=== PATIENT | female | born 1970 | race Caucasian/White ===

== ENCOUNTER 2022-09-05 08:47 | Day surgery (SDC) | payer OTHER ==
[~2022-09-05] VITALS: Ht 160 cm; Wt 77.6 kg
[~2022-09-05 08:47] MED LIST: BENTYL10 MG PO; Hair, Skin & N1 EACH PO; SAM-E200 MG PO; ST. JOHN'S WORT1 GM MC
== END 2022-09-05 11:12 | disposition home or self-care (01) ==
LOC: ORSCSDS 08:47
PROVIDERS: Internal Medicine Gastroenterology
PROC: 0DBN8ZX Excision of Sigmoid Colon, Via Natural or Artificial Opening Endoscopic, Diagnostic (ICD-10-PCS; principal; 2022-09-05 10:15)
DX: Z12.11 Encounter for screening for malignant neoplasm of colon (principal); K63.5 Polyp of colon; K57.30 Diverticulosis of large intestine without perforation or abscess without bleeding; E66.01 Morbid (severe) obesity due to excess calories; Z68.31 Body mass index [BMI] 31.0-31.9, adult; F17.210 Nicotine dependence, cigarettes, uncomplicated
CPT/HCPCS: 88305; J2704; J7120